=== PATIENT | male | born 1970 | race Caucasian/White ===

== ENCOUNTER 2021-04-19 22:53 | Emergency (ER) | payer BC ==
--- NOTE | 2021-04-19 23:13 | EDM.PDOC ---
ED HPI GENERAL MEDICAL PROBLEM - General Chief Complaint: Abdominal Pain Stated Complaint: KIDNEY STONE Time Seen by Provider: 04/19/21 23:08 - History of Present Illness INITIAL COMMENTS - FREE TEXT/NARRATIVE: History of present illness: [] Patient suffering severe right sided abdominal and flank pain and most especially in the groin. It is just like with prior kidney stones. He had a CT in [place] which show a kidney stone 4 mm in size someone in his ureter but he is not sure where. He did not bring his C D. The patient was seen if the onset of this pain on 12 April Review of systems: As per history of present illness and below otherwise all systems reviewed and negative. Past medical history: As per history of present illness and as reviewed below otherwise noncontributory. Surgical history: As per history of present illness and as reviewed below otherwise noncontributory. Social history: No reported history of drug or alcohol abuse. Family history: As per history of present illness and as reviewed below otherwise noncontributory. Physical exam: Constitutional - well developed, well-nourished and in no acute distress HEENT - normocephalic, no evidence of trauma - external nose and mouth normal - no mass in neck and no JVD - mucosae moist EYES - full EOM, PERRL, no icterus - no evidence of inflammation, injection, or drainage Respiratory - no respiratory distress, equal bilateral expansion GI - abdomen soft without distension or organomegaly - normal bowel sounds - no guard or rebound Musculoskeletal no gross deformity of long bones or joints - no tenderness, swelling or edema Neurologic - Alert and oriented times four - CN II-XII grossly intact - motor sensory and coordination symmetrically normal Psychiatric - appropriate mood and affect with normal thought content Hematologic - No petechiae or purpura - mucosa appropriate color and sclera not pale - normal nail bed color and refill Integument - no rash or evidence of trauma - normal turgor Diagnostics: [] Therapeutics: [] Impression: [] Plan: [] Definitive disposition and diagnosis as appropriate pending reevaluation and review of above. Abdomen Pain Score (Numeric/FACES): 8 - Related Data Allergies Allergy/AdvReac Type Severity Reaction Status Date / Time hydromorphone [From Dilaudid] Allergy Nausea and Verified 04/19/21 23:12 Vomiting tramadol Allergy Nausea and Verified 04/19/21 23:12 Vomiting Home Meds: Home Meds Escitalopram Oxalate [Lexapro] 20 mg PO DAILY 04/19/21 [History] Tamsulosin HCl [Flomax] 0.4 mg PO DAILY 04/19/21 [History] cephALEXin [Cephalexin] 500 mg PO BID 04/19/21 [History] clonazePAM [Clonazepam] 0.5 mg PO TID 04/19/21 [History] Acetaminophen/oxyCODONE [Percocet 325-10 MG] 1 tab PO Q4H PRN #14 tab 04/20/21 [Rx] Ondansetron [Ondansetron ODT] 4 mg PO Q6H PRN #10 tab.rapdis 04/20/21 [Rx] Tamsulosin [Flomax] 0.4 mg PO DAILY #7 cap.er 04/20/21 [Rx] cephALEXin [Cephalexin] 500 mg PO BID #14 capsule 04/20/21 [Rx] ED ROS GENERAL - Review of Systems Review Of Systems: Comprehensive ROS is negative, except as noted in HPI. ED EXAM, GENERAL - Physical Exam Exam: See Below Free Text/Narrative:: My physical exam is in the HPI Course - Vital Signs Text/Narrative:: 0147 hrs. patient's pain is markedly relieved. The patient has a KUB that shows a stone in the same location where it was on prior CT. Discussed with Dr. Valentino. Patient will call the office and have follow-up. Last Recorded V/S: Last Vital Signs Temp 36.6 C 04/19/21 23:10 Pulse 62 04/20/21 00:45 Resp 17 04/20/21 00:45 BP 120/86 04/20/21 00:45 Pulse Ox 97 04/20/21 00:45 - Orders/Labs/Meds Orders: Active Orders 24 hr Category Date Time Status Sodium Chloride 0.9% [Saline Flush] Med 04/19/21 23:28 Active 10 ml FLUSH ASDIRECTED PRN Sodium Chloride 0.9% [Saline Flush] Med 04/19/21 23:28 Active 2.5 ml FLUSH ASDIRECTED PRN Saline Lock Insert [OM.PC] Stat Oth 04/19/21 23:28 Ordered Medication Orders Sodium Chloride (Sodium Chloride 0.9% 10 Ml Syringe) 10 ml FLUSH ASDIRECTED PRN PRN Reason: Keep Vein Open Last Admin: 04/20/21 00:40 Dose: 10 ml Documented by: ESAU Sodium Chloride (Sodium Chloride 0.9% 2.5 Ml Syringe) 2.5 ml FLUSH ASDIRECTED PRN PRN Reason: Keep Vein Open Last Admin: 04/20/21 00:42 Dose: 2.5 ml Documented by: ESAU Labs: Laboratory Tests 04/19/21 04/20/21 04/20/21 Range/Units 23:08 00:00 00:00 WBC 7.89 (4.0-11.0) K/uL RBC 4.89 (4.50-5.90) M/uL Hgb 15.1 (13.0-17.0) g/dL Hct 44.2 (38.0-50.0) % MCV 90.4 (80.0-98.0) fL MCH 30.9 (27.0-32.0) pg MCHC 34.2 (31.0-37.0) g/dL RDW Std Deviation 44.0 (28.0-62.0) fl RDW Coeff of Cally 13 (11.0-15.0) % Plt Count 216 (150-400) K/uL MPV 10.50 (7.40-12.00) fL Neut % (Auto) 55.0 (48.0-80.0) % Lymph % (Auto) 33.1 (16.0-40.0) % Cobb % (Auto) 10.1 (0.0-15.0) % Eos % (Auto) 1.5 (0.0-7.0) % Baso % (Auto) 0.3 (0.0-1.5) % Neut # (Auto) 4.3 (1.4-5.7) K/uL Lymph # (Auto) 2.6 H (0.6-2.4) K/uL Cobb # (Auto) 0.8 (0.0-0.8) K/uL Eos # (Auto) 0.1 (0.0-0.7) K/uL Baso # (Auto) 0.0 (0.0-0.1) K/uL Nucleated RBC % 0.0 /100WBC Nucleated RBCs # 0 K/uL Sodium 140 (136-148) mmol/L Potassium 3.6 (3.5-5.1) mmol/L Chloride 103 (98-107) mmol/L Carbon Dioxide 25.6 (21.0-32.0) mmol/L BUN 21 H (7.0-18.0) mg/dL Creatinine 1.1 (0.8-1.3) mg/dL Est Cr Clr Drug Dosing 68.77 mL/min Estimated GFR (MDRD) > 60.0 ml/min Glucose 99 (74-106) mg/dL Calcium 8.9 (8.5-10.1) mg/dL Urine Color YELLOW Urine Appearance SLT CLOUDY Urine pH 6.0 (5.0-8.0) Ur Specific [place] 1.025 (1.001-1.035) Urine Protein NEGATIVE (NEGATIVE) mg/dL Urine Glucose (UA) NEGATIVE (NEGATIVE) mg/dL Urine Ketones NEGATIVE (NEGATIVE) mg/dL Urine Occult Blood LARGE H (NEGATIVE) Urine Nitrite NEGATIVE (NEGATIVE) Urine Bilirubin NEGATIVE (NEGATIVE) Urine Urobilinogen 2.0 H (<2.0) EU/dL Ur Leukocyte Esterase NEGATIVE (NEGATIVE) Urine RBC 30-40 (0-2/HPF) Urine WBC 0-2 (0-5/HPF) Ur Epithelial Cells RARE (NONE-FEW) Urine Bacteria RARE (NEGATIVE) Meds: Medications Generic Name Dose Route Start Last Admin Trade Name Frejoel PRN Reason Stop Dose Admin Sodium Chloride 10 ml 04/19/21 23:28 04/20/21 00:40 Sodium Chloride 0.9% 10 Ml Syringe FLUSH 10 ml ASDIRECTED PRN Administration Keep Vein Open Sodium Chloride 2.5 ml 04/19/21 23:28 04/20/21 00:42 Sodium Chloride 0.9% 2.5 Ml Syringe FLUSH 2.5 ml ASDIRECTED PRN Administration Keep Vein Open Discontinued Medications Generic Name Dose Route Start Last Admin Trade Name Freq PRN Reason Stop Dose Admin Sodium Chloride 1,000 mls @ 1,000 mls/hr 04/19/21 23:22 04/19/21 23:58 Normal Saline IV 04/20/21 00:21 1,000 mls/hr .Bolus ONE Administration Ketorolac Tromethamine 15 mg 04/19/21 23:22 04/20/21 00:55 Ketorolac 30 Mg/Ml Sdv IVPUSH 04/19/21 23:23 15 mg ONETIME ONE Administration Ketorolac Tromethamine 15 mg 04/19/21 23:54 04/19/21 23:59 Ketorolac 15 Mg/Ml Sdv IVPUSH 04/19/21 23:55 15 mg NOW STA Administration Ondansetron HCl 4 mg 04/19/21 23:22 04/19/21 23:59 Ondansetron 4 Mg/2 Ml Sdv IVPUSH 04/19/21 23:23 4 mg ONETIME ONE Administration Departure - Departure Time of Disposition: 01:52 Disposition: Home, Self-Care 01 Condition: Good Clinical Impression: Ureter colic, Ureteral stone - Discharge Information Prescriptions: cephALEXin [Cephalexin] 500 mg PO BID #14 capsule Tamsulosin [Flomax] 0.4 mg PO DAILY #7 cap.er Ondansetron [Ondansetron ODT] 4 mg PO Q6H PRN #10 tab.rapdis PRN Reason: Nausea/Vomiting Acetaminophen/oxyCODONE [Percocet 325-10 MG] 1 tab PO Q4H PRN #14 tab PRN Reason: Pain (Severe 7-10) Instructions: Kidney Stones, [id number] Referrals: PCP,Not In Area [Primary Care Provider] - Forms: ED Department Discharge Additional Instructions: See Dr. Valentino in [place] because the stone has not moved. [facility] - [facility] [address] [place] [address] [place] [address] The following information is given to patients seen in the emergency department who are being discharged to home. This information is to outline your options for follow-up care. We provide all patients seen in our emergency department with a follow-up referral. The need for follow-up, as well as the timing and circumstances, are variable depending upon the specifics of your emergency department visit. If you don't have a primary care physician on staff, we will provide you with a referral. We always advise you to contact your personal physician following an emergency department visit to inform them of the circumstance of the visit and for follow-up with them and/or the need for any referrals to a consulting specialist. The emergency department will also refer you to a specialist when appropriate. This referral assures that you have the opportunity for follow-up care with a specialist. All of these measure are taken in an effort to provide you with optimal care, which includes your follow-up. Under all circumstances we always encourage you to contact your private physician who remains a resource for coordinating your care. When calling for follow-up care, please make the office aware that this follow-up is from your recent emergency room visit. If for any reason you are refused follow-up, please contact the [facility] Emergency Department at and asked to speak to the emergency department charge nurse. Sepsis Event Note (ED) - Focused Exam Vital Signs: Vital Signs Temp Pulse Resp BP Pulse Ox 04/20/21 00:45 62 17 120/86 97 04/19/21 23:10 36.6 C 76 18 140/88 97 - My Orders Last 24 Hours: My Active Orders 04/19/21 23:28 Sodium Chloride 0.9% [Saline Flush] 10 ml FLUSH ASDIRECTED PRN Sodium Chloride 0.9% [Saline Flush] 2.5 ml FLUSH ASDIRECTED PRN Saline Lock Insert [OM.PC] Stat - Assessment/Plan Last 24 Hours: My Active Orders 04/19/21 23:28 Sodium Chloride 0.9% [Saline Flush] 10 ml FLUSH ASDIRECTED PRN Sodium Chloride 0.9% [Saline Flush] 2.5 ml FLUSH ASDIRECTED PRN Saline Lock Insert [OM.PC] Stat
[2021-04-19] MEDS ORDERED: Sodium Chloride 0.9% 1,000 ML IV ONE (23:22)
[2021-04-19] MEDS ORDERED: Ondansetron 4 MG/2 ML SDV IVPUSH ONE (23:22)
[2021-04-19] MEDS ORDERED: Sodium Chloride 0.9% 10 ML Syringe FLUSH PRN (23:28)
[2021-04-19] MEDS ORDERED: Sodium Chloride 0.9% 2.5 ML Syringe FLUSH PRN (23:28)
[2021-04-19] MEDS ORDERED: Ketorolac 15 MG/ML SDV IVPUSH STA (23:54)
[2021-04-19] MEDS: Ketorolac 30 MG/ML SDV IVPUSH ONE (23:54)
[2021-04-20 00:20] LABS: BLOOD UREA NITROGEN,BUN 21 mg/dL (7.0-18.0); CARBON DIOXIDE,CO2 25.6 mmol/L (21.0-32.0); CHLORIDE,CL 103 mmol/L (98-107); GLUCOSE RANDOM 99 mg/dL (74-106); POTASSIUM,K 3.6 mmol/L (3.5-5.1); SODIUM,NA 140 mmol/L (136-148)
[2021-04-20] MEDS: Ketorolac 30 MG/ML SDV IVPUSH ONE (00:55)
--- NOTE | 2021-04-20 01:06 | CR ---
INDICATION: Location of 4 millimeter right year calculus. COMPARISON: CT of the abdomen and pelvis from 04/13/2021 FINDINGS: AP supine examination of the abdomen and pelvis was performed. The previously seen 4 millimeter right proximal ureteral calculus may be present at the superior L3 level just to the right of the superior L3 vertebral body, in a location similar to the previous CT. There is no sign of any additional renal or ureteral calculi either side, with the previously seen tiny 2 millimeter nonobstructive calculus in the left kidney not identifiable on today`s plain film. The bowel gas pattern is unremarkable with nothing seen to suggest obstruction or ileus. There is no sign of dilatation of the small bowel or colon. There is no free air. Soft tissue planes are preserved and there is no sign of a mass. No calcifications of concern are identified. The osseous structures are normal in appearance for the patient`s age. The lung bases are clear. IMPRESSION: Possible 4 millimeter calculus located in the proximal ureter at the superior L3 level, similar in position to the previous CT. No sign of obstruction or ileus. Dictated by Jagdish Kennedy MD @ 04/20/2021 1:04:[address] Jagdish Kennedy @ Apr 20 2021 1:04AM
[2021-04-20] MEDS ORDERED: Acetaminophen/oxyCODONE 325-10 MG Tab PO ONE (02:08)
== END 2021-04-20 02:24 | disposition home or self-care (01) ==
LOC: MW.ED 22:53
DX: N20.1 Calculus of ureter (principal); Z88.5 Allergy status to narcotic agent; Z79.899 Other long term (current) drug therapy
CPT/HCPCS: 36415; 74018; 80048; 81001; 85025; 96374; 96375; 96376; 99284; A9270; J1885; J2405; J7030